=== PATIENT | female | born 1950 | race Caucasian/White ===

== ENCOUNTER 2017-12-12 13:12 | Emergency (ER) | payer MEDICARE ==
[2017-12-12] MEDS ORDERED: Prochlorperazine 10 MG/2 ML VIAL ONE (13:46)
[2017-12-12] MEDS ORDERED: diphenhydrAMINE 50 MG/ML VIAL ONE (13:47)
[2017-12-12] MEDS ORDERED: Ketorolac Tromethamine 30 MG/ML VIAL ONE (13:53)
[2017-12-12 13:59] LABS: #Basophils 0.1 thou/uL (0.0-0.2); #Eosinphils 0.3 thou/uL (0.0-0.7); #Lymphocytes 2.4 thou/uL (1.20-3.40); #Monocytes 0.6 thou/uL (0.11-0.59); #Neutrophils 5.4 thou/uL (1.40-6.50); %Basophils 1.6 % (0.0-1.0); %Monocytes 7.2 % (0.0-10.0); %Neutrophils 61.2 % (42.0-75.0); Hemoglobin 14.1 g/dL (12.0-16.0); Mean Corpuscular HGB CONC 37.7 g/dL (32.0-36.0); Mean Corpuscular Hemoglobin 31.1 pg (27.0-31.0); Mean Corpuscular Volume 82.5 fL (78.0-98.0); Mean Platelet Volume 6.3 fL (7.4-10.4); Platelet Count 288 thou/uL (130-400); RBC Distribution Width 10.5 % (11.5-14.5); Red Blood Cell (RBC) Count 4.55 mill/uL (4.20-5.40); White Blood Cell (WBC) Count 8.8 thou/uL (4.8-10.8)
[2017-12-12 14:01] LABS: Anion Gap 13 mmol/L (10-20); BUN (Urea Nitrogen) 9 mg/dL (9.8-20.1); Calc. Creatinine Clearance 0 mL/min (70-130); Calcium 9.5 mg/dL (7.8-10.44); Carbon Dioxide 26 mmol/L (23-31); Chloride 102 mmol/L (98-107); Estimated GFR-MDRD 79; Glucose 110 mg/dL (80-115); Potassium 4.2 mmol/L (3.5-5.1); Sodium 137 mmol/L (136-145)
[2017-12-12 14:08] LABS: MDiff Complete? YES
== END 2017-12-12 14:40 | disposition home or self-care (01) ==
LOC: BURERS 13:12
DX: H83.09 Labyrinthitis, unspecified ear (principal); R51 Headache; F17.210 Nicotine dependence, cigarettes, uncomplicated; F41.9 Anxiety disorder, unspecified; F32.9 Major depressive disorder, single episode, unspecified; E11.9 Type 2 diabetes mellitus without complications; Z79.899 Other long term (current) drug therapy; Z79.1 Long term (current) use of non-steroidal anti-inflammatories (NSAID); Z79.82 Long term (current) use of aspirin
CPT/HCPCS: 80048; 85025; 96361; 96374; 96375; J0780; J1200; J1885

== ENCOUNTER 2018-02-12 20:41 | Emergency (ER) | payer MEDICARE ==
[2018-02-12] MEDS ORDERED: Lidocaine 1% w/Epinephrine 1:100K 30 ML VIAL ONE (20:57)
[2018-02-12] MEDS ORDERED: Adacel (T-DAP) 0.5 ML VIAL ONE (21:34)
--- NOTE | 2018-02-12 22:33 | CT ---
CT CERVICAL SPINE: Date: 02-12-18 Technique: Spiral CT of the cervical spine was performed for evaluation following trauma. Axial slice s were acquired and then coronal and sagittal reconstructions were done. FINDINGS: No fracture, dislocation, or soft tissue swelling was seen. The C1-2 dens distance is normal. Disc sp aces below the C4 level are narrowed. Findings by level follow: C1-2: No acute findings. C2-3: There seems to be a very small central disc protrusion at this level, but it does not appear to cause any significant impingement of the neural structures. The foramina are patent. C3-4: Moderate to severe right foraminal narrowing due to osteophyte and facet arthritis. C4-5: Moderate bilateral foraminal narrowing due to osteophytes. C5-6: Moderate to severe right foraminal narrowing and mild to moderate left foraminal narrowing. C6-7: No acute findings. C7-T1: No acute findings. T1-2: No acute findings. The lung apices are clear. No neck masses were identified. No hemorrhage was seen in the neck. IMPRESSION: Advanced cervical spondylosis but no acute traumatic findings. POS: HOME
--- NOTE | 2018-02-12 22:35 | CT ---
CT BRAIN WITHOUT CONTRAST: Date: 02-12-18 Technique: The angulation of the slices was nonstandard but the study is diagnostic. FINDINGS: Soft tissue laceration is seen in the left frontal region of scalp, particularly towards the vertex o f the skull. Some soft tissue air is present. The underlying skull appears intact with no sign of fra cture. No bony fractures were seen on any of these images. The visible paranasal sinuses are clear, a s are the mastoid air cells. The ventricles are normal in size for age and atrophy. No intracranial bleeding or extraaxial hematom a was seen. There is no sign of mass, edema, or stroke. IMPRESSION: Scalp laceration is noted but no acute intracranial finding. POS: HOME
== END 2018-02-12 21:57 | disposition home or self-care (01) ==
LOC: BURERS 20:41
DX: S01.01XA Laceration without foreign body of scalp, initial encounter (principal); S16.1XXA Strain of muscle, fascia and tendon at neck level, initial encounter; E11.9 Type 2 diabetes mellitus without complications; F41.9 Anxiety disorder, unspecified; F32.9 Major depressive disorder, single episode, unspecified; F17.210 Nicotine dependence, cigarettes, uncomplicated; Z79.899 Other long term (current) drug therapy; Z79.01 Long term (current) use of anticoagulants; W01.198A Fall on same level from slipping, tripping and stumbling with subsequent striking against other object, initial encounter
CPT/HCPCS: 12034; 70450; 72125; 90471; 90715; J2001

== ENCOUNTER 2018-02-20 12:05 | Emergency (ER) | payer MEDICARE | END 2018-02-20 12:35 | disposition home or self-care (01) | LOC: BURERS 12:05 | DX: S01.01XD Laceration without foreign body of scalp, subsequent encounter (principal); E11.9 Type 2 diabetes mellitus without complications; F17.210 Nicotine dependence, cigarettes, uncomplicated; F41.9 Anxiety disorder, unspecified; F32.9 Major depressive disorder, single episode, unspecified; Z79.82 Long term (current) use of aspirin; Z79.899 Other long term (current) drug therapy ==